=== PATIENT | female | born 1975 | race Caucasian/White ===

== ENCOUNTER 2018-04-23 03:56 | Emergency (ER) | payer OTHER ==
--- NOTE | 2018-04-23 04:19 | ED Physician Documentation ---
PD HPI CHEST PAIN - Stated complaint Stated Complaint: VOMITING,BACK AND CHEST PAIN - History obtained from History obtained from: Patient - History of Present Illness Timing - onset: Enter time (02:00) Timing - onset during: Sleep Timing - details: Abrupt onset Pain level max: 10 Pain level now: 10 Quality: Pain Location: Epigastric Radiation: Back Improved by: Nothing Worsened by: Other (no exacerbating factors) Associated symptoms: Nausea, Vomiting Similar symptoms before: Other (has had similar back pain before, and recently seen for recurrence of back spasms, prescribed flexeril. However, chest pain is new for patient) Recently seen: Clinic Review of Systems Constitutional: reports: Reviewed and negative Cardiac: reports: Chest pain / pressure. 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 - Present Medications Home Medications: Ambulatory Orders Medication Instructions Recorded Confirmed Ibuprofen [Motrin] 600 mg PO Q6H PRN #30 tab 07/20/13 diazePAM [Valium] 5 mg PO TID PRN #15 tablet 07/20/13 Ondansetron Odt [Zofran] 4 mg TL Q6H PRN #10 tablet 04/23/18 oxyCODONE/ACET 5/325 [Percocet 5 1 - 2 each PO Q6H PRN #14 tablet 04/23/18 mg/325 mg] - Allergies Allergies/Adverse Reactions: Allergies Allergy/AdvReac Type Severity Reaction Status Date / Time No Known Drug Allergies Allergy Verified 04/23/18 04:16 - Social History Does the pt smoke?: Yes Smoking Status: Current every day smoker Does the pt drink ETOH?: No Does the pt have substance abuse?: No - POLST Patient has POLST: No PD ED PE NORMAL - Vitals Vital signs reviewed: Yes - General General: Alert and oriented X 3, Well developed/nourished, Other (obvious painful distress) - HEENT HEENT: Moist mucous membranes - Cardiac Cardiac: RRR, No murmur - Respiratory Respiratory: No respiratory distress, Clear bilaterally - Abdomen Abdomen: Soft, Non distended, Other (mild/moderate tenderness RUQ and epigastrium) - Derm Derm: Normal color, Warm and dry, No rash - Extremities Extremities: No edema Results - Vitals Vitals: Vital Signs - 24 hr 04/23/18 04/23/18 04/23/18 04:05 04:41 04:42 Temperature 36.4 C L Heart Rate 73 80 Respiratory 13 18 Rate Blood Pressure 161/131 H 148/70 H Blood Pressure 148/70 H [Left] O2 Saturation 100 99 04/23/18 04/23/18 04/23/18 04:55 05:01 05:25 Temperature Heart Rate 81 Respiratory 10 L Rate Blood Pressure 145/78 H Blood Pressure [Left] O2 Saturation 87 L 98 99 04/23/18 04/23/18 04/23/18 06:19 06:58 07:26 Temperature 36.8 C Heart Rate 81 85 70 Respiratory 21 24 20 Rate Blood Pressure 134/65 H 107/62 111/61 Blood Pressure [Left] O2 Saturation 100 99 96 Oxygen O2 Source Room air Oxygen Flow Rate 2 - EKG (time done) No standard instances Rate: Rate (enter#) (72) Rhythm: NSR [place]: Normal Intervals: Normal ME QRS: Normal Ischemia: Normal ST segments - Labs Labs: Laboratory Tests 04/23/18 04/23/18 04/23/18 04:39 04:39 04:39 WBC 13.9 H RBC 4.95 Hgb 14.5 Hct 42.9 MCV 86.6 MCH 29.2 MCHC 33.7 RDW 13.0 Plt Count 292 MPV 8.9 Neut # (Auto) 10.7 H Lymph # (Auto) 2.3 [place] # (Auto) 0.6 Eos # (Auto) 0.3 Baso # (Auto) 0.1 Absolute Nucleated RBC 0.00 Nucleated RBC % 0.0 Sodium 136 Potassium 3.5 Chloride 105 Carbon Dioxide 21 Anion Gap 10.0 BUN 15 Creatinine 0.7 Estimated GFR (MDRD) 90 Glucose 208 H Calcium 9.3 Total Bilirubin 0.8 AST 27 ALT 27 Alkaline Phosphatase 79 Troponin I < 0.04 Total Protein 8.3 H Albumin 4.4 Globulin 3.9 Albumin/Globulin Ratio 1.1 Lipase 28 Urine Color Urine Clarity Urine pH Ur Specific [place] Urine Protein Urine Glucose (UA) Urine Ketones Urine Occult Blood Urine Nitrite Urine Bilirubin Urine Urobilinogen Ur Leukocyte Esterase Urine RBC Urine WBC Ur Squamous Epith Cells Urine Bacteria Ur Microscopic Review Urine Culture Comments Urine HCG, Qual 04/23/18 06:30 WBC RBC Hgb Hct MCV MCH MCHC RDW Plt Count MPV Neut # (Auto) Lymph # (Auto) [place] # (Auto) Eos # (Auto) Baso # (Auto) Absolute Nucleated RBC Nucleated RBC % Sodium Potassium Chloride Carbon Dioxide Anion Gap BUN Creatinine Estimated GFR (MDRD) Glucose Calcium Total Bilirubin AST ALT Alkaline Phosphatase Troponin I Total Protein Albumin Globulin Albumin/Globulin Ratio Lipase Urine Color YELLOW Urine Clarity CLEAR Urine pH 7.0 Ur Specific [place] 1.015 Urine Protein NEGATIVE Urine Glucose (UA) NEGATIVE Urine Ketones TRACE Urine Occult Blood SMALL H Urine Nitrite NEGATIVE Urine Bilirubin NEGATIVE Urine Urobilinogen 0.2 (NORMAL) Ur Leukocyte Esterase NEGATIVE Urine RBC 0-5 Urine WBC 0-3 Ur Squamous Epith Cells FEW Squamous Urine Bacteria Rare Ur Microscopic Review INDICATED Urine Culture Comments NOT INDICATED Urine HCG, Qual NEGATIVE - Rads (name of study) RUQ US Radiology: Prelim report reviewed, See rad report PD MEDICAL DECISION MAKING - ED course Complexity details: reviewed old records, reviewed results, re-evaluated patient , considered differential, d/w patient ED course: resolution of symptoms after dilaudid IV x 2 doses and zofran IV. AAOx3 on reevaluation after tests resulted, benign abd. exam. results discussed and advised to f/u with gen. surgery, return if worse - Sepsis Event Vital Signs: Vital Signs - 24 hr 04/23/18 04/23/18 04/23/18 04:05 04:41 04:42 Temperature 36.4 C L Heart Rate 73 80 Respiratory 13 18 Rate Blood Pressure 161/131 H 148/70 H Blood Pressure 148/70 H [Left] O2 Saturation 100 99 04/23/18 04/23/18 04/23/18 04:55 05:01 05:25 Temperature Heart Rate 81 Respiratory 10 L Rate Blood Pressure 145/78 H Blood Pressure [Left] O2 Saturation 87 L 98 99 04/23/18 04/23/18 04/23/18 06:19 06:58 07:26 Temperature 36.8 C Heart Rate 81 85 70 Respiratory 21 24 20 Rate Blood Pressure 134/65 H 107/62 111/61 Blood Pressure [Left] O2 Saturation 100 99 96 Oxygen O2 Source Room air Oxygen Flow Rate 2 Departure - Departure Disposition: 01 Home, Self Care Clinical Impression: Biliary colic Condition: Good Instructions: ED Gallstone W Biliary Colic Follow-Up: Erica Paz ARNP [Primary Care Provider] - Armand Albarran MD [Provider Admit Priv/Credential] - Prescriptions: Ondansetron Odt [Zofran] 4 mg TL Q6H PRN #10 tablet PRN Reason: Nausea / Vomiting oxyCODONE/ACET 5/325 [Percocet 5 mg/325 mg] 1 - 2 each PO Q6H PRN #14 tablet PRN Reason: Pain Discharge Date/Time: 04/23/18 07:33
[2018-04-23] MEDS ORDERED: KETOROLAC 60 MG/2 ML VIAL IVP STA (04:21)
[2018-04-23] MEDS ORDERED: HYDROmorphone 1 MG/ML CARPUJECT IVP STA ×2 (04:21→04:48)
[2018-04-23] MEDS ORDERED: SODIUM CHLORIDE 0.9% 1,000 ML IV STA (04:21)
[2018-04-23] MEDS ORDERED: ONDANSETRON 4 MG/2 ML VIAL IVP STA (04:29)
[2018-04-23 04:48] LABS: BASOPHILS # (AUTO) 0.1 10^3/uL (0.0-0.1); BASOPHILS % (AUTO) 0.8 %; EOSINOPHILS # (AUTO) 0.3 10^3/uL (0.0-0.7); HGB - HEMOGLOBIN 14.5 g/dL (12.0-16.0); LYMPHOCYTES # (AUTO) 2.3 10^3/uL (1.5-3.5); LYMPHOCYTES % (AUTO) 16.3 %; MEAN CORPUSCULAR HEMOGLOBIN 29.2 pg (27.0-31.0); MEAN CORPUSCULAR HGB CONC 33.7 g/dL (32.0-36.0); MEAN CORPUSCULAR VOLUME 86.6 fL (81.0-99.0); MEAN PLATELET VOLUME 8.9 fL (7.9-10.8); MONOCYTES # (AUTO) 0.6 10^3/uL (0.0-1.0); NEUTROPHILS # (AUTO) 10.7 10^3/uL (1.5-6.6); NEUTROPHILS % (AUTO) 76.9 %; PLT - PLATELET COUNT 292 10^3/uL (130-450); RED BLOOD COUNT 4.95 10^6/uL (4.20-5.40); WHITE BLOOD COUNT 13.9 x10^3/uL (4.8-10.8)
[2018-04-23 04:56] LABS: ALBUMIN 4.4 g/dL (3.2-5.5); ALBUMIN/GLOBULIN RATIO 1.1 (1.0-2.2); BILIRUBIN,TOTAL 0.8 mg/dL (0.2-1.0); CALCIUM 9.3 mg/dL (8.5-10.3); CREATININE 0.7 mg/dL (0.4-1.0); TOTAL PROTEIN 8.3 g/dL (6.7-8.2)
--- NOTE | 2018-04-23 05:54 | Ultrasound Report ---
Procedure Date: 04/23/2018 Accession Number: [id number] / [id number] Procedure: US - Abdomen Limited CPT Code: FULL RESULT: EXAM: ABDOMEN ULTRASOUND LIMITED, RUQ EXAM DATE: 04/23/2018 05:23 AM. CLINICAL HISTORY: Right upper quadrant pain. COMPARISON: None. TECHNIQUE: Real-time scanning was performed with static images obtained. FINDINGS: Liver: Enlarged and echogenic. 22 cm. Main portal vein flow: Hepatopetal. Gallbladder: Multiple mobile stones in the gallbladder. Wall thickness is normal at 2.1 mm. No focal tenderness over the gallbladder. Biliary System: CBD measures 9 mm. Possible 2 mm stone in the distal common duct. Other: Right kidney measures 11.1 cm and appears normal. Visualized portions of the pancreas are unremarkable. IMPRESSION: 1. Multiple mobile stones in the gallbladder. No cholecystitis identified. 2. Dilated common duct measuring up to 9 mm. Possible 2 mm stone in the distal common duct. 3. Enlarged fatty liver. RADIA
[2018-04-23 06:36] LABS: BILIRUBIN,URINE NEGATIVE (NEGATIVE); GLUCOSE, URINE (UA) NEGATIVE (NEGATIVE); KETONES,URINE (UA) TRACE mg/dL (NEGATIVE); LEUKOCYTE ESTERASE, URINE NEGATIVE (NEGATIVE); NITRITE,URINE NEGATIVE (NEGATIVE); OCCULT BLOOD,URINE SMALL (NEGATIVE); PROTEIN,URINE NEGATIVE (NEGATIVE); UROBILINOGEN,URINE 0.2 (NORMAL) E.U./dL (NORMAL)
[2018-04-23 06:37] LABS: CLARITY,URINE CLEAR (CLEAR); HCG UR QUAL NEGATIVE
[2018-04-23 06:41] LABS: RBC,URINE 0-5 /HPF (0-5)
[2018-04-23 06:42] LABS: BACTERIA,URINE Rare /HPF (None Seen); SQUAMOUS EPITHELIAL CELL,UR FEW Squamous (<= Few)
[2018-04-23 07:28] VITALS: BP 111/61
== END 2018-04-23 07:33 | disposition home or self-care (01) ==
LOC: ED 03:56
DX: K80.20 Calculus of gallbladder without cholecystitis without obstruction (principal); K76.0 Fatty (change of) liver, not elsewhere classified; F17.200 Nicotine dependence, unspecified, uncomplicated
CPT/HCPCS: 76705; 80053; 81001; 81025; 83690; 84484; 85025; 93005; 96361; 96374; 96375; 99283; 99284; J1170; 81003; 87086

== ENCOUNTER 2018-05-06 06:49 | Observation (INO) | payer OTHER ==
[~2018-05-06 06:49] MED LIST: LACTATED RINGERS 1,000 ML IV ONE
[2018-05-06 07:19] LABS: HCG UR QUAL NEGATIVE
[2018-05-06] MEDS ORDERED: BUPIVACAINE 0.5%-EPI 1:200000 PF 30 ML VIAL ONE ×3 (07:21→20:58)
[2018-05-06 08:06] LABS: ALBUMIN 3.8 g/dL (3.2-5.5); BILIRUBIN,TOTAL 0.8 mg/dL (0.2-1.0); TOTAL PROTEIN 7.2 g/dL (6.7-8.2)
[2018-05-06] MEDS ORDERED: BUPIVACAINE 0.5%-EPI 1:200000 PF 30 ML VIAL SUBQ ONE ×4 (08:55→21:28)
[2018-05-06] MEDS ORDERED: PROPOFOL 200 MG/20 ML VIAL IVP ONE ×2 (09:00→22:00)
[2018-05-06] MEDS ORDERED: ACETAMINOPHEN 1,000 MG/100 ML 100 ML IV ONE (09:00)
[2018-05-06] MEDS ORDERED: PHENYLEPHRINE 50 MG/5 ML VIAL IV ONE (09:00)
[2018-05-06] MEDS ORDERED: fentaNYL 100 MCG/2 ML VIAL IVP ONE ×2 (09:00→22:00)
[2018-05-06] MEDS ORDERED: GLYCOPYRROLATE 1 MG/5 ML VIAL IVP ONE ×2 (09:00→22:00)
[2018-05-06] MEDS ORDERED: LIDOCAINE-MPF 2% 5 ML VIAL IM ONE (09:00)
[2018-05-06] MEDS ORDERED: NEOSTIGMINE 1 MG/1 ML 10 ML MDV IVP ONE ×2 (09:00→22:00)
[2018-05-06] MEDS ORDERED: DEXAMETHASONE 4 MG/ML VIAL IVP ONE (09:00)
[2018-05-06] MEDS ORDERED: ceFAZolin 1 GM VIAL IV ONE ×2 (09:00→22:00)
[2018-05-06] MEDS ORDERED: ROCURONIUM 50 MG/5 ML VIAL IVP ONE ×2 (09:00→22:00)
[2018-05-06] MEDS ORDERED: MIDAZOLAM 2 MG/2 ML VIAL IVP ONE (09:00)
[2018-05-06] MEDS ORDERED: LACTATED RINGERS 1,000 ML IV ONE ×6 (09:13→22:30)
[2018-05-06] MEDS ORDERED: fentaNYL 100 MCG/2 ML VIAL ONE (13:09)
[2018-05-06] MEDS: HYDROmorphone 0.5 MG/0.5 ML SYRINGE ONE ×2 (13:30→23:11)
--- NOTE | 2018-05-06 13:51 | OPERATIVE REPORT ---
Operative Report - General Procedure Date: 05/06/18 Planned Procedure: Laparoscopic cholecystectomy Pre-Op Diagnosis: biliary colic Procedure Performed: laparoscopic cholecystectomy Post Op Diagnosis: chronic cholecystitis - Procedure Note Primary Surgeon: Sandip Secondary Surgeon: Brianda Anesthesia Provider: Beny Estimated Blood Loss (mL): 50 Drain/Tube Type: Levi drain - Other Other Information/Narrative: Findings: After obtaining informed consent the patient was brought into the operating room and positioned on the operating table in the supine position taking noted pressure points. The patient was intubated by anesthesia. Perioperative antibiotics were administered. A foot board was placed and the patients feet secured to the board due to the patient's body habitus. The patient was then prepped and draped in the usual sterile fashion and a timeout was taken according to protocol. An infraumbilical 1 cm incision was created and deepened down to the umbilical stalk. The stalk was grasped and elevated and the veres needle inserted. The abdominal cavity was insufflated. A 5 mm incision was created in the patient's epigastric region to the right of the midline. Using a 5 mm Optiview trocar the abdominal cavity was entered. The Veress needle was removed and exchanged for a 12 mm port. 2 additional 5 mm ports were then placed along the patient's right lateral abdominal wall. The gallbladder was noted to be very thickened and unable to be grasped. It was then drained with a large needle and clear fluid was evacuated. The tip of the gallbladder was then grasped and retracted over the dome of the liver. The gallbladder was noted to be adherent to the underlying omentum and duodenum. These structures were carefully dissected off the gallbladder with blunt dissection. The gallbladder was intrahepatic and the enlarged fatty liver created difficulty with visualization of the base of the gallbladder. A thickened peel was opened on the anterior surface of the gallbladder and extended in each direction towards the liver. An enlarged lymph node was carefully dissected off the gallbladder mucosa. The inflammation created significant amount of oozing during this process. Continue dissecting the inflamed tissue off of the surface of the gallbladder trying to expose the cystic duct and artery. Eventually I was able to dissect out the cystic artery with much difficulty. It was difficult to obtain a significant amount of space proximally and distally on the cystic artery. I did place 2 clamps and divided the artery. After division, the proximally placed clip became dislodged and bleeding occurred from the cystic artery. This was clamped with the [place] and the bleeding temporarily controlled . I then called and Dr. Lamar for assistance. Upon his arrival a fifth 5 mm port was inserted. I was then able to clip the cystic artery proximal to its transection and obtaining hemostasis. I continue to carefully dissect out at the base of the gallbladder finally eventually exposing the cystic duct. During this process the base of the gallbladder mucosa was eroded through by a very large gallstone. Several large gallstones were dislodged into the abdominal cavity during this process. I was able to circumferentially dissect out the cystic duct. The epigastric 5 mm port was upgraded to 12 millimeter port, and using the 10 mm clipping device the cystic duct was clipped and divided. I then began peeling the gallbladder off of the liver bed. This remains difficult due to the intrahepatic nature of the gallbladder and the very thickened capsule around the gallbladder. There was some bleeding into the liver during this process. Eventually the gallbladder was completely removed from the gallbladder fossa. The gallbladder was placed into the specimen bag and each of the spilled stones were carefully removed from the abdominal cavity and placed into the specimen bag. Surgicel was placed in the gallbladder fossa for hemostasis. The umbilical port site incision was extended appropriately to remove the very enlarged gallbladder with stones. The abdominal cavity was then reexamined. There was continual bleeding from the gallbladder fossa which was controlled with combination of electrocautery and a second Surgicel. The gallbladder fossa was copiously irrigated and all visible stones were removed. Hemostasis was noted to be achieved. A 19 Yi Levi drain was then inserted from the lateral port into the gallbladder fossa. The abdominal cavity was allowed to desufflate. The umbilical incision was closed with a running 0 Vicryl suture. The umbilical skin was closed with a 3-0 nylon. The drain was sutured in place with a 3-0 nylon. The remaining incisions were closed with 4-0 Monocryl. Dressings were applied and the patient was extubated taken to recovery in stable condition. Estimated blood loss: 50 cc Fluids received: 1900 cc crystalloid Complications: None Specimen: Gallbladder
[2018-05-06] MEDS ORDERED: oxyCOD/ACETAMIN 5 MG/325 MG TABLET PO PRN (14:09)
[2018-05-06] MEDS ORDERED: SODIUM CHLORIDE FLUSH 0.9% 10 ML SYRINGE IVP PRN (14:09)
[2018-05-06] MEDS ORDERED: oxyCODONE 5 MG TABLET PO PRN (14:28)
[2018-05-06] MEDS: oxyCODONE 5 MG TABLET PO PRN ×2 (14:42→18:44)
[2018-05-06] MEDS: MORPHINE 2 MG/ML SYRINGE IVP PRN ×2 (16:42→18:45)
[2018-05-06] MEDS ORDERED: ONDANSETRON 4 MG/2 ML VIAL IVP PRN (18:37)
[2018-05-06 18:41] LABS: BASOPHILS % (AUTO) 0.3 %; HGB - HEMOGLOBIN 11.8 g/dL (12.0-16.0); LYMPHOCYTES % (AUTO) 4.2 %; MEAN CORPUSCULAR HGB CONC 33.2 g/dL (32.0-36.0); MEAN CORPUSCULAR VOLUME 87.3 fL (81.0-99.0); MEAN PLATELET VOLUME 8.4 fL (7.9-10.8); MONOCYTES % (AUTO) 4.8 %; NEUTROPHILS % (AUTO) 90.7 %; PLT - PLATELET COUNT 463 10^3/uL (130-450); RED BLOOD COUNT 4.08 10^6/uL (4.20-5.40); WHITE BLOOD COUNT 26.3 x10^3/uL (4.8-10.8)
[2018-05-06] MEDS: AMPICILLIN/SULBACTAM 3 GM in SODIUM CHLORIDE 0.9% MINIBAG 100 ML IV SCH (18:44)
[2018-05-06 18:47] LABS: ABNORMAL LYMPHS % (MANUAL) 0 %
[2018-05-06] MEDS: ALBUTEROL NEB 2.5 MG/3 ML INH PRN (19:13)
[2018-05-06 19:18] LABS: BAND NEUTROPHILS % (MANUAL) 8 %; EOSINOPHILS # (MANUAL) 0.3 10^3/uL (0-0.7); LYMPHOCYTES # (MANUAL) 1.6 10^3/uL (1.5-3.5); LYMPHOCYTES % (MANUAL) 6 %; MONOCYTES # (MANUAL) 0.3 10^3/uL (0.0-1.0); NEUTROPHILS # (MANUAL) 24.2 10^3/uL (1.5-6.6); NEUTROPHILS % (MANUAL) 84 %
[2018-05-06 19:19] LABS: PLATELET ESTIMATE, MANUAL INCREASED (>450,000) (NORMAL); PLATELET MORPHOLOGY NORMAL APPEARANCE (NORMAL); RBC MORPHOLOGY (MULTIPLE) NORMAL APPEARANCE (NORMAL)
[2018-05-06] MEDS: LACTATED RINGERS 1,000 ML IV SCH (19:43)
[2018-05-06] MEDS ORDERED: TRANEXAMIC ACID 1,000 MG in SODIUM CHLORIDE 0.9% 100ML 100 ML IV ONE (20:37)
[2018-05-06] MEDS ORDERED: HYDROmorphone 1 MG/ML SYRINGE IVP ONE (22:00)
[2018-05-06] MEDS ORDERED: TRANEXAMIC ACID 1,000 MG/10 ML VIAL IV ONE (22:00)
[2018-05-06] MEDS ORDERED: ONDANSETRON 4 MG/2 ML VIAL IVP ONE (22:00)
[2018-05-06] MEDS ORDERED: SUCCINYLCHOLINE 200 MG/10 ML VIAL IVP ONE (22:00)
[2018-05-06] MEDS ORDERED: HYDROmorphone 0.5 MG/0.5 ML SYRINGE ONE (23:09)
[2018-05-07] MEDS: MORPHINE 2 MG/ML SYRINGE IVP PRN ×5 (02:08→22:03)
[2018-05-07] MEDS ORDERED: TRANEXAMIC ACID 1,000 MG in SODIUM CHLORIDE 0.9% 100ML 100 ML IV ONE (03:00)
[2018-05-07 05:31] LABS: BASOPHILS % (AUTO) 0.1 %; EOSINOPHILS % (AUTO) 0.1 %; LYMPHOCYTES # (AUTO) 1.7 10^3/uL (1.5-3.5); LYMPHOCYTES % (AUTO) 10.3 %; MEAN CORPUSCULAR HEMOGLOBIN 29.4 pg (27.0-31.0); MEAN CORPUSCULAR VOLUME 86.5 fL (81.0-99.0); MEAN PLATELET VOLUME 8.3 fL (7.9-10.8); MONOCYTES # (AUTO) 1.3 10^3/uL (0.0-1.0); MONOCYTES % (AUTO) 7.7 %; NEUTROPHILS # (AUTO) 13.3 10^3/uL (1.5-6.6); NEUTROPHILS % (AUTO) 81.8 %; PLT - PLATELET COUNT 393 10^3/uL (130-450); RED BLOOD COUNT 3.07 10^6/uL (4.20-5.40); RED CELL DISTRIBUTION WIDTH 13.1 % (12.0-15.0); WHITE BLOOD COUNT 16.3 x10^3/uL (4.8-10.8)
[2018-05-07] MEDS: AMPICILLIN/SULBACTAM 3 GM in SODIUM CHLORIDE 0.9% MINIBAG 100 ML IV SCH ×5 (05:59→17:41)
[2018-05-07] MEDS: LACTATED RINGERS 1,000 ML IV SCH ×3 (06:06→23:36)
[2018-05-07] MEDS: oxyCODONE 5 MG TABLET PO PRN ×3 (06:23→17:42)
[2018-05-07] MEDS: ALBUTEROL NEB 2.5 MG/3 ML INH PRN ×2 (08:01→14:11)
--- NOTE | 2018-05-07 09:38 | OPERATIVE REPORT ---
Operative Report - General Procedure Date: 05/06/18 Planned Procedure: Exploratory laparoscopy, possible laparotomy, evacuation of hematoma Pre-Op Diagnosis: post operative bleeding Procedure Performed: Exploratory laparoscopy, evacuation of hematoma, hemostasis of gallbladder fossa - Procedure Note Primary Surgeon: Sandip Estimated Blood Loss (mL): 300 Drain/Tube Type: Levi drain - Other Other Information/Narrative: Findings: After obtaining informed consent the patient was brought to the operating room and positioned supine. She was intubated and administered pre- operative antibiotics. She was prepped and draped and a time out performed. 1 gm of tranexemic acid was administered. The umbilical incision was opened and the ambrocio port inserted. The 10 mm scope inserted and blood products were observed in the right paracolic gutters. The epigastric port site was opened and a 12 mm port inserted. an additional 5 mm port site was opened and a 5 mm port inserted. The levi drain was removed and a 5 mm port placed here. The blood products were suctioned. The liver elevated and the surgicel with clot was broken up and suctioned out. 190 cc of blood was evauted prior to irrigating. The liver was elevated and the gallbladder fossa observed. The clips placed on the cystic artery was in place with no evidence of pulsatile bleeding There was punctate oozing noted from the raw surface of the gallbladder fossa which was controlled with electrocautery. The liver bed was copiously irrigated with liters of saline until all clots were removed. The liver bed was observed for several minutes to ensure hemostasis. Surgiflo was administered to the liver bed where the bleeding had occurred. A new levi drain was inserted through the lateral port and positioned in the gallbladder fossa. The abdomen was then allowed to desufflate and the umbilical incision closed with a running 0 Vicryl suture. 20 cc of lidocaine was administered. The remaining incisions were closed with 3-0 nylon. The levi drain was secured with 3-0 nylon. The patient was extubated and taken to recovery in stable condition.
--- NOTE | 2018-05-07 09:40 | PROVIDER PROGRESS NOTE ---
Subjective - General Procedure Date: 05/06/18 Post Op Days: 1 - Review of Systems Wound/Incisions: positive: Other (dressings dry and intact) Drain Type: miriam Drain Output Description: 25 cc serosanguinous General: positive: Weakness, Fatigue Cardiovascular: negative: Palpitations Gastrointestinal: positive: Abdominal pain, Other (incisional pain) Genitourinary: positive: No symptoms Musculoskeletal: positive: Shoulder pain Psychiatric: positive: No symptoms Objective - Patient Data Reviewed Vital Signs: Yes Vital Signs: Vital Signs x48h Pulse Resp 05/07/18 08:02 113 H 20 Weight: Weight 05/05/18 05/06/18 05/07/18 23:59 23:59 23:59 Weight (kg) 116.3 kg Intake & Output: Intake and Output Totals x24h 05/05/18 05/06/18 05/07/18 23:59 23:59 23:59 Intake Total 2400 1210 Output Total 975 Balance 1425 1210 - Lab Results Lab Results: 05/07/18 05:05 Other Lab Results: Lab Results x24hrs 05/07/18 05/06/18 05/06/18 Range/Units 05:05 20:18 18:31 WBC 16.3 H (4.8-10.8) x10^3/uL RBC 3.07 L (4.20-5.40) 10^6/uL Hgb 9.0 L (12.0-16.0) g/dL Hct 26.5 L (37.0-47.0) % MCV 86.5 (81.0-99.0) fL MCH 29.4 (27.0-31.0) pg MCHC 34.0 (32.0-36.0) g/dL RDW 13.1 (12.0-15.0) % Plt Count 393 (130-450) 10^3/uL MPV 8.3 (7.9-10.8) fL Neut # (Auto) 13.3 H Lymph # (Auto) 1.7 [place] # (Auto) 1.3 H Eos # (Auto) 0.0 Baso # (Auto) 0.0 Absolute Nucleated RBC 0.00 Total Counted Band Neuts % (Manual) (0 - 10) % Abnorm Lymph % (Manual) % Nucleated RBC % 0.0 Neutrophils # (Manual) (1.5-6.6) 10^3/uL Lymphocytes # (Manual) (1.5-3.5) 10^3/uL Monocytes # (Manual) (0.0-1.0) 10^3/uL Eosinophils # (Manual) (0-0.7) 10^3/uL Basophils # (Manual) (0-0.1) 10^3/uL Platelet Estimate (NORMAL) Platelet Morphology (NORMAL) RBC Morph Micro Appear (NORMAL) Blood Type O POSITIVE Blood Type Recheck O POSITIVE Antibody Screen NEGATIVE Crossmatch IS Only See Detail 05/06/18 Range/Units 18:31 WBC 26.3 H (4.8-10.8) x10^3/uL RBC 4.08 L (4.20-5.40) 10^6/uL Hgb 11.8 L (12.0-16.0) g/dL Hct 35.6 L (37.0-47.0) % MCV 87.3 (81.0-99.0) fL MCH 29.0 (27.0-31.0) pg MCHC 33.2 (32.0-36.0) g/dL RDW 13.0 (12.0-15.0) % Plt Count 463 H (130-450) 10^3/uL MPV 8.4 (7.9-10.8) fL Neut # (Auto) Not Reportable Lymph # (Auto) Not Reportable [place] # (Auto) Not Reportable Eos # (Auto) Not Reportable Baso # (Auto) Not Reportable Absolute Nucleated RBC Not Reportable Total Counted 100 Band Neuts % (Manual) 8 (0 - 10) % Abnorm Lymph % (Manual) 0 % Nucleated RBC % Not Reportable Neutrophils # (Manual) 24.2 H (1.5-6.6) 10^3/uL Lymphocytes # (Manual) 1.6 (1.5-3.5) 10^3/uL Monocytes # (Manual) 0.3 (0.0-1.0) 10^3/uL Eosinophils # (Manual) 0.3 (0-0.7) 10^3/uL Basophils # (Manual) 0.0 (0-0.1) 10^3/uL Platelet Estimate INCREASED (>450,000) (NORMAL) Platelet Morphology NORMAL APPEARANCE (NORMAL) RBC Morph Micro Appear NORMAL APPEARANCE (NORMAL) Blood Type Blood Type Recheck Antibody Screen Crossmatch IS Only - Current Medications Current Medications: Current Medications Generic Name Dose Route Start Last Admin Trade Name Freq PRN Reason Stop Dose Admin Albuterol 2.5 mg 05/06/18 18:38 05/07/18 08:01 INH 05/10/18 18:37 2.5 mg RTQ4H PRN Administration Wheezing Ampicillin Sodium/Sulbactam 100 mls @ 200 mls/hr 05/06/18 18:00 05/07/18 05: 59 Sodium 3 gm/ Sodium Chloride IV 200 mls/hr Q6HR BEBETO Administration Lactated Ringer's 1,000 mls @ 125 mls/hr 05/06/18 19:00 05/07/18 06:06 Lr IV 05/09/18 18:59 125 mls/hr .Q8H BEBETO Administration Morphine Sulfate 4 mg 05/06/18 16:15 05/07/18 08:42 Morphine IVP 4 mg Q2H PRN Administration PAIN Oxycodone HCl 5 mg 05/06/18 14:33 05/07/18 06:23 Roxicodone PO 5 mg Q4HR PRN Administration PAIN Sodium Chloride 10 ml 05/06/18 14:09 05/06/18 23:59 Normal Saline Flush 0.9% IVP 10 ml PRN PRN Administration PER PHYSICIAN ORDER - Physical Exam Wound/Incisions: positive: Dressing dry and intact, No drainage General Appearance: positive: Other (laying in bed flat. Flat affect.) Respiratory: positive: No respiratory distress Cardiovascular: positive: Regular rate & rhythm Abdomen: positive: Other (soft, non-distended.) Extremities: positive: Other (capillary refill < 2 sec) Neurologic/Psychiatric: positive: Oriented x3 Impression/Plan - Problem List Problem List: s/p laparoscopic cholecystectomy and return to OR for laparoscopic evacuation of hematoma and hemostasis of liver bed POD 1 The patients bleeding from the gallbladder fossa was likely related to her fatty liver disease and possible underlying cirrhosis. In the setting of morbid obesity and a history of alcohol and drug abuse she has underlying liver disease which contributed to the post operative bleeding. She responded well to administration of tranexamic acid. Her HH has declined but this is appropriate for the amount of blood loss which occurred. Her draining overnight has been minimal. She does not require blood transfusion at this time. I have encouraged the patient to ambulate and use her IS to prevent DVT and pneumonia. I explained that due to her body habitus she is at high risk for both. Will removed espinal once ambulating Continue antibiotics due to high risk of post operative infection Regular diet as tolerated Plan for DC home tomorrow if drain output remains stable, patient tolerating diet and ambulating without assistance.
[2018-05-07] MEDS ORDERED: ONDANSETRON 4 MG/2 ML VIAL IVP PRN (12:21)
[2018-05-07] MEDS: ACETAMINOPHEN 1,000 MG/100 ML 100 ML IV SCH ×2 (14:14→20:54)
[2018-05-07] MEDS: SODIUM CHLORIDE FLUSH 0.9% 10 ML SYRINGE IVP PRN ×2 (19:37→22:03)
[2018-05-08] MEDS: AMPICILLIN/SULBACTAM 3 GM in SODIUM CHLORIDE 0.9% MINIBAG 100 ML IV SCH ×5 (00:11→23:44)
[2018-05-08] MEDS: oxyCODONE 5 MG TABLET PO PRN ×4 (00:13→23:42)
[2018-05-08] MEDS: SODIUM CHLORIDE FLUSH 0.9% 10 ML SYRINGE IVP PRN ×2 (00:20→02:21)
[2018-05-08] MEDS: MORPHINE 2 MG/ML SYRINGE IVP PRN ×4 (02:16→14:49)
[2018-05-08] MEDS: ACETAMINOPHEN 1,000 MG/100 ML 100 ML IV SCH ×4 (02:17→21:57)
[2018-05-08] MEDS: ALBUTEROL NEB 2.5 MG/3 ML INH PRN ×4 (02:38→19:41)
[2018-05-08] MEDS: LACTATED RINGERS 1,000 ML IV SCH ×3 (05:13→13:42)
[2018-05-08 08:07] LABS: BASOPHILS # (AUTO) 0.1 10^3/uL (0.0-0.1); BASOPHILS % (AUTO) 0.6 %; EOSINOPHILS # (AUTO) 0.3 10^3/uL (0.0-0.7); EOSINOPHILS % (AUTO) 2.6 %; HGB - HEMOGLOBIN 8.3 g/dL (12.0-16.0); LYMPHOCYTES # (AUTO) 2.7 10^3/uL (1.5-3.5); LYMPHOCYTES % (AUTO) 20.3 %; MEAN CORPUSCULAR HEMOGLOBIN 29.3 pg (27.0-31.0); MEAN CORPUSCULAR HGB CONC 33.6 g/dL (32.0-36.0); MEAN CORPUSCULAR VOLUME 87.3 fL (81.0-99.0); MEAN PLATELET VOLUME 8.2 fL (7.9-10.8); MONOCYTES # (AUTO) 1.1 10^3/uL (0.0-1.0); MONOCYTES % (AUTO) 7.9 %; NEUTROPHILS # (AUTO) 9.1 10^3/uL (1.5-6.6); NEUTROPHILS % (AUTO) 68.6 %; PLT - PLATELET COUNT 324 10^3/uL (130-450); RED BLOOD COUNT 2.84 10^6/uL (4.20-5.40); RED CELL DISTRIBUTION WIDTH 13.1 % (12.0-15.0); WHITE BLOOD COUNT 13.2 x10^3/uL (4.8-10.8)
[2018-05-08] MEDS ORDERED: TRANEXAMIC ACID 1,000 MG in SODIUM CHLORIDE 0.9% 100ML 100 ML IV ONE (10:10)
--- NOTE | 2018-05-08 11:44 | POST OP PROGRESS NOTE ---
Subjective - General Admit Date: 05/07/18 Procedure Date: 05/06/18 Post Op Days: 2 - Review of Systems Wound/Incisions: positive: Dressing dry and intact, No drainage Drain Type: miriam Drain Output Description: sanguinous Approximate mls Output: 260 General: positive: Weakness, Fatigue Cardiovascular: negative: Chest pain, Palpitations Gastrointestinal: positive: Abdominal pain, Other (incisional pain) Genitourinary: positive: No symptoms Psychiatric: positive: No symptoms - Other Other Information/Narrative: Patient feels a bit better today. She continues to have bloody drainage from the drain. Her HH is trending down slowly, appropriate for the amount of blood loss she had. She is tolerating a regular diet. She has not had a bowel movement in several days. Surgery Impression Plan - Problem List (1) S/P cholecystectomy Impression/Plan: Persistent bloody drainage is concerning for some ongoing oozing from the liver bed. I will administer another dose of TXA. I am not concerned for arterial bleeding as this was not the case upon return to the operating room and only a small amount of oozing from the liver was noted. She has underlying liver disease which is contributing to her inability to clot. Will continue to monitor RONEL drainage. Encourage ambulation. Continue antibiotics for high risk of post operative infection. Encourage IS. Plan for discharge once drainage is stable.
[2018-05-08 13:22] LABS: INR 1.2 (0.8-1.2); PT - PROTHROMBIN TIME 13.1 secs (9.9-12.6)
[2018-05-09] MEDS ORDERED: SODIUM CHLORIDE 0.9% 500 ML IV PRN
[2018-05-09] MEDS: ACETAMINOPHEN 1,000 MG/100 ML 100 ML IV SCH ×4 (02:25→20:34)
[2018-05-09] MEDS: oxyCODONE 5 MG TABLET PO PRN ×4 (04:35→20:34)
[2018-05-09] MEDS: ALBUTEROL NEB 2.5 MG/3 ML INH PRN ×2 (04:57→16:37)
[2018-05-09] MEDS: AMPICILLIN/SULBACTAM 3 GM in SODIUM CHLORIDE 0.9% MINIBAG 100 ML IV SCH ×4 (05:31→23:58)
[2018-05-09 05:50] LABS: BASOPHILS # (AUTO) 0.1 10^3/uL (0.0-0.1); BASOPHILS % (AUTO) 0.7 %; EOSINOPHILS # (AUTO) 0.4 10^3/uL (0.0-0.7); EOSINOPHILS % (AUTO) 4.2 %; HGB - HEMOGLOBIN 7.9 g/dL (12.0-16.0); LYMPHOCYTES # (AUTO) 2.5 10^3/uL (1.5-3.5); LYMPHOCYTES % (AUTO) 25.6 %; MEAN CORPUSCULAR HEMOGLOBIN 30.2 pg (27.0-31.0); MEAN CORPUSCULAR HGB CONC 34.3 g/dL (32.0-36.0); MEAN CORPUSCULAR VOLUME 88.2 fL (81.0-99.0); MEAN PLATELET VOLUME 8.1 fL (7.9-10.8); MONOCYTES # (AUTO) 0.6 10^3/uL (0.0-1.0); NEUTROPHILS # (AUTO) 6.3 10^3/uL (1.5-6.6); NEUTROPHILS % (AUTO) 63.5 %; PLT - PLATELET COUNT 300 10^3/uL (130-450); RED BLOOD COUNT 2.62 10^6/uL (4.20-5.40); RED CELL DISTRIBUTION WIDTH 12.9 % (12.0-15.0); WHITE BLOOD COUNT 9.9 x10^3/uL (4.8-10.8)
[2018-05-09 06:06] LABS: BILIRUBIN,DIRECT 0.1 mg/dL (0.1-0.5); BILIRUBIN,TOTAL 0.6 mg/dL (0.2-1.0); TOTAL PROTEIN 6.2 g/dL (6.7-8.2)
[2018-05-09] MEDS: POLYETHYLENE GLYCOL 3350 17 GM PACKET PO SCH (08:40)
[2018-05-09] MEDS: SENNA 8.6 MG TABLET PO SCH (08:41)
[2018-05-09] MEDS: DOCUSATE SODIUM 250 MG CAPSULE PO SCH (08:41)
[2018-05-09] MEDS ORDERED: SENNA 8.6 MG TABLET PO SCH (09:00)
[2018-05-09] MEDS ORDERED: DOCUSATE SODIUM 250 MG CAPSULE PO SCH (09:00)
--- NOTE | 2018-05-09 13:59 | PROVIDER PROGRESS NOTE ---
Subjective - General Admit Date: 05/07/18 Procedure Date: 05/06/18 Post Op Days: 3 Procedure Performed: lap xander and laparoscopic evacuation of hematoma - Review of Systems Wound/Incisions: positive: Other (umbilical dressing saturated) Drain Type: miriam Drain Output Description: sanguinous Approximate mls Output: 40 General: positive: Weakness, Fatigue Cardiovascular: negative: Chest pain, Palpitations Gastrointestinal: positive: Abdominal pain, Other (incisional pain) Genitourinary: positive: No symptoms Psychiatric: positive: No symptoms - Other Other Information/Narrative: Patient is continuing to feel better although she does still have significant incisional pain. Her RONEL drain has decreased significantly and the total for today has been 40 cc of sanguinous fluid. She did receive 2 units of FFP yesterday for an abnormal INR. Her H&H is continuing to trend down however she can she does not meet transfusion criteria. Objective - Patient Data Reviewed Vital Signs: Yes Vital Signs: Vital Signs x48h Temp Pulse Resp BP Pulse Ox 05/09/18 08:47 37.0 C 105 H 18 120/78 93 Intake & Output: Intake and Output Totals x24h 05/07/18 05/08/18 05/09/18 23:59 23:59 23:59 Intake Total 5592.000 3231 1920.000 Output Total 2810 4365 1220 Balance 2782.000 -1134 700.000 - Lab Results Lab Results: 05/09/18 05:46 Other Lab Results: Lab Results x24hrs 05/09/18 05/09/18 05/08/18 Range/Units 05:46 05:46 Unknown WBC 9.9 (4.8-10.8) x10^3/uL RBC 2.62 L (4.20-5.40) 10^6/uL Hgb 7.9 L (12.0-16.0) g/dL Hct 23.1 L (37.0-47.0) % MCV 88.2 (81.0-99.0) fL MCH 30.2 (27.0-31.0) pg MCHC 34.3 (32.0-36.0) g/dL RDW 12.9 (12.0-15.0) % Plt Count 300 (130-450) 10^3/uL MPV 8.1 (7.9-10.8) fL Neut # (Auto) 6.3 (1.5-6.6) 10^3/uL Lymph # (Auto) 2.5 (1.5-3.5) 10^3/uL [place] # (Auto) 0.6 (0.0-1.0) 10^3/uL Eos # (Auto) 0.4 (0.0-0.7) 10^3/uL Baso # (Auto) 0.1 (0.0-0.1) 10^3/uL Absolute Nucleated RBC 0.00 x10^3/uL Nucleated RBC % 0.0 /100WBC Total Bilirubin 0.6 (0.2-1.0) mg/dL Direct Bilirubin 0.1 (0.1-0.5) mg/dL AST 53 H (10-42) IU/L ALT 77 H (10-60) IU/L Alkaline Phosphatase 56 (42-121) IU/L Total Protein 6.2 L (6.7-8.2) g/dL Albumin 3.0 L (3.2-5.5) g/dL Globulin 3.2 (2.1-4.2) g/dL Blood Type O POSITIVE - Current Medications Current Medications: Current Medications Generic Name Dose Route Start Last Admin Trade Name Freq PRN Reason Stop Dose Admin Albuterol 2.5 mg 05/07/18 12:23 05/09/18 04:57 INH 2.5 mg RTQ4H PRN Administration Wheezing Docusate Sodium 250 - 500 mg 05/09/18 09:00 05/09/18 08:41 Colace 250mg Capsule PO 250 mg DAILY BEBETO Administration Ampicillin Sodium/Sulbactam 100 mls @ 200 mls/hr 05/07/18 12:00 05/09/18 13: 20 Sodium 3 gm/ Sodium Chloride IV Infused Q6HR BEBETO Infusion Acetaminophen 100 mls @ 400 mls/hr 05/07/18 14:00 05/09/18 09:08 Ofirmev IV Infused Q6H BEBETO Infusion Morphine Sulfate 4 mg 05/07/18 12:12 05/08/18 14:49 Morphine IVP 4 mg Q2H PRN Administration PAIN Oxycodone HCl 5 mg 05/07/18 12:21 05/09/18 12:05 Roxicodone PO 5 mg Q4HR PRN Administration PAIN Polyethylene Glycol 17 gm 05/09/18 09:00 05/09/18 08:40 Miralax PO 17 gm DAILY BEBETO Administration Senna 8.6 - 17.2 mg 05/09/18 09:00 05/09/18 08:41 Senokot PO 8.6 mg DAILY BEBETO Administration Sodium Chloride 10 ml 05/07/18 12:22 05/08/18 02:21 Normal Saline Flush 0.9% IVP 10 ml PRN PRN Administration PER PHYSICIAN ORDER - Physical Exam Wound/Incisions: positive: Other (no erythema, dry.) General Appearance: positive: No acute distress, Anxious Respiratory: positive: No respiratory distress, Other (crackles bilaterally) Cardiovascular: positive: Regular rate & rhythm Abdomen: positive: Other (Drain in place. Soft, non-distended, tender to palpation appropriate for post op state.) Extremities: positive: No pedal edema Neurologic/Psychiatric: positive: Oriented x3 Impression/Plan - Problem List Problem List: s/p lap xander with post op bleeding and laparoscopic evacuation of hematoma. - RONEL drainage has decreased significantly today. Will wait an additional 24 hours to ensure the bleeding has completely stopped. - We will continue to monitor H&H and transfuse as needed. She has not required blood transfusion as of yet. - Continue IV antibiotics for high risk of postoperative infection - SCD boots for DVT prophylaxis. No chemical DVT prophylaxis insetting of postoperative bleeding. - Encourage ambulation
[2018-05-09] MEDS: SODIUM CHLORIDE FLUSH 0.9% 10 ML SYRINGE IVP PRN ×2 (18:22→23:58)
[2018-05-10] MEDS: ACETAMINOPHEN 1,000 MG/100 ML 100 ML IV SCH ×2 (02:00→08:33)
[2018-05-10] MEDS: SODIUM CHLORIDE FLUSH 0.9% 10 ML SYRINGE IVP PRN (02:15)
[2018-05-10] MEDS: ALBUTEROL NEB 2.5 MG/3 ML INH PRN (02:25)
[2018-05-10] MEDS: oxyCODONE 5 MG TABLET PO PRN ×2 (05:08→08:40)
[2018-05-10] MEDS: AMPICILLIN/SULBACTAM 3 GM in SODIUM CHLORIDE 0.9% MINIBAG 100 ML IV SCH (05:22)
[2018-05-10 08:10] VITALS: BP 124/81
[2018-05-10] MEDS: POLYETHYLENE GLYCOL 3350 17 GM PACKET PO SCH (08:32)
[2018-05-10] MEDS: SENNA 8.6 MG TABLET PO SCH (08:33)
[2018-05-10] MEDS: DOCUSATE SODIUM 250 MG CAPSULE PO SCH (08:33)
--- NOTE | 2018-05-10 09:02 | DISCHARGE SUMMARY ---
"Discharge Summary Admit Date: 05/06/18 Discharge Date: 05/10/18 Discharging Provider: Sandip Code Status: Attempt Resuscitation Condition at Discharge: Good Discharge Disposition: 01 Home, Self Care - DIAGNOSES Admission Diagnoses: cholecystitis Discharge Diagnoses with Status of Each Condition: Cholecystitis - s/p cholecystectomy post operative bleeding - s/p evacuation of hematoma - HPI History of Present Illness: This is a 43 year old female who came in for an elective cholecystectomy for chronic complaints of biliary colic. S - CONSULTS | PROCEDURES Procedures: laparoscopic cholecystectomy, laparsoscopic evacuation of hematoma and hemostasis - HOSPITAL COURSE Hospital Course: he was noted to have a very inflammed gallbladder intra-operatively and bleeding was encountered. This was controlled, however, she developed post operative bleeding from her gallbladder fossa secondary to her fatty liver disease and possible underlying cirrhosis. he was taken back to the operative room for laparaoscopic evacuation of hematoma and hemostasis with chemical agents and cautery. Post operatively she continued to demonstrate signs of oozing from the liver bed and additional doses of TXA and FFP were administered and eventually the RONEL drainage diminished. She Has had a difficult time with pain control secondary to her history of drug abuse. She is tolerating a regular diet and ambulating on her own. Her espinal was removed on POD 1. She is stable for discharge today. - ALLERGIES Allergies/Adverse Reactions: Allergies Allergy/AdvReac Type Severity Reaction Status Date / Time No Known Drug Allergies Allergy Verified 04/23/18 04:16 - MEDICATIONS Home Medications: Ambulatory Orders Medication Instructions Recorded Confirmed Cyclobenzaprine [Flexeril] 10 mg PO TID PRN 05/06/18 05/06/18 Home Medications Other | Comments: Ciprofloxacin 500 mg PO Q 12 hrs x 4 days Oxycodone 5 mg 2 tabs PO Q 4 hours prn pain Tylenol 1000 mg PO Q 8 hrs prn pain Ibuprofen 600 mg PO Q 8 hrs PRN pain Miralax OTC prn constipation - PHYSICAL EXAM AT DISCHARGE General Appearance: positive: No acute distress Respiratory: positive: No respiratory distress Cardiovascular: positive: Regular rate & rhythm Abdomen: positive: Other (soft, non-distended. dressings CDI) Extremities: positive: No pedal edema Neurologic/Psychiatric: positive: Oriented x3 - LABS Result Diagrams: 05/09/18 05:46 - FOLLOW UP Follow Up: Dr. Oropeza's office Kris Mulhall 20 at 1030 am. - TIME SPENT Time Spent in Discharge (Minutes): 30"
--- NOTE | 2018-05-10 09:11 | Discharge Plan ---
Discharge Plan Disposition: Home, Self Care Condition: Good Prescriptions: oxyCODONE [Roxicodone] 5 mg PO Q4HR PRN #45 tablet PRN Reason: Pain Ciprofloxacin/Ciprofloxa HCl [Ciprofloxacin ER 500 mg Tablet] 500 mg PO BID 4 Days #8 tbmp.24hr Polyethylene Glycol 3350 [Miralax] 17 gm PO DAILY #30 packet Diet: Regular Activity Restrictions: No strenuous activity 4 weeks Shower Restrictions: No Driving Restrictions: Yes (not on narcotics) Weight Bearing: Full Weight Instruction Topics: Polyethylene Glycol powder, Ciprofloxacin tablets, Acetaminophen Oxycodone tablets, Gallbladder Surg Additional Instructions or Follow Up instructions: If you become weak or dizzy, develop fever, chills, worsening abdominal pain or redness or drainage around you incision, or if your RONEL drainage is more than 100cc in a day call Dr. Oropeza's office or go to ER. OK to removed dressings to shower and replace with new dressings. Measure and record drain output daily. No Smoking: If you smoke, Please STOP! Call for help. Follow-up with: Erica Paz ARNP [Primary Care Provider] -
== END 2018-05-10 10:58 | disposition home or self-care (01) ==
LOC: SDS 06:49 → OBS 12:37 → MS2 14:04 → SDS 05-07 09:52 → MS2 05-07 09:53 → UNDOADMIN 05-07 09:53 → MS2 05-07 11:25
PROVIDERS: ADMIT Surgery; ATTEND Surgery
PROC: 0W3G4ZZ Control Bleeding in Peritoneal Cavity, Percutaneous Endoscopic Approach (ICD-10-PCS; 2018-05-06)
PROC: 0FT44ZZ Resection of Gallbladder, Percutaneous Endoscopic Approach (ICD-10-PCS; principal; 2018-05-06 08:30)
DX: K80.10 Calculus of gallbladder with chronic cholecystitis without obstruction (principal); K91.840 Postprocedural hemorrhage of a digestive system organ or structure following a digestive system procedure; K76.0 Fatty (change of) liver, not elsewhere classified; Y84.8 Other medical procedures as the cause of abnormal reaction of the patient, or of later complication, without mention of misadventure at the time of the procedure; Y92.234 Operating room of hospital as the place of occurrence of the external cause; K82.8 Other specified diseases of gallbladder; J45.909 Unspecified asthma, uncomplicated; E66.9 Obesity, unspecified; Z68.42 Body mass index [BMI] 45.0-49.9, adult; F10.11 Alcohol abuse, in remission; F15.11 Other stimulant abuse, in remission; R79.1 Abnormal coagulation profile; Z79.51 Long term (current) use of inhaled steroids; Z79.899 Other long term (current) drug therapy; Z87.891 Personal history of nicotine dependence
CPT/HCPCS: 36415; 47379; 47562; 80076; 81025; 82040; 82247; 84075; 84155; 84460; 85025; 85610; 86850; 86900; 86901; 86920; 94640; A9270; G0378; J0131; J0330; J1170; J2270; J7120; P9017; 88304

== ENCOUNTER 2018-07-04 15:15 | Outpatient (CLI) | payer OTHER | END 2018-07-04 15:16 | disposition home or self-care (01) | LOC: SC 15:15 | PROVIDERS: ATTEND Internal Medicine Pulmonary Disease | DX: G47.30 Sleep apnea, unspecified (principal); R06.83 Snoring; G47.10 Hypersomnia, unspecified | CPT/HCPCS: 99203; 99212 ==

== ENCOUNTER 2018-07-28 20:22 | Outpatient (CLI) | payer OTHER | END 2018-07-28 20:23 | disposition home or self-care (01) | LOC: SC 20:22 | PROVIDERS: ATTEND Internal Medicine Pulmonary Disease | DX: G47.33 Obstructive sleep apnea (adult) (pediatric) (principal); G47.61 Periodic limb movement disorder | CPT/HCPCS: 95810 ==

== ENCOUNTER 2018-08-24 09:06 | Outpatient (CLI) | payer OTHER | END 2018-08-24 09:07 | disposition home or self-care (01) | LOC: SC 09:06 | PROVIDERS: ATTEND Nurse Practitioner Family | DX: G47.33 Obstructive sleep apnea (adult) (pediatric) (principal); G47.61 Periodic limb movement disorder | CPT/HCPCS: 99212; 99214 ==

== ENCOUNTER 2018-11-18 08:00 | Outpatient (CLI) | payer OTHER ==
[2018-11-18 12:52] LABS: BASOPHILS # (AUTO) 0.1 10^3/uL (0.0-0.1); BASOPHILS % (AUTO) 0.6 %; EOSINOPHILS # (AUTO) 0.8 10^3/uL (0.0-0.7); HGB - HEMOGLOBIN 13.5 g/dL (12.0-16.0); LYMPHOCYTES # (AUTO) 2.8 10^3/uL (1.5-3.5); LYMPHOCYTES % (AUTO) 23.2 %; MEAN CORPUSCULAR HEMOGLOBIN 27.7 pg (27.0-31.0); MEAN CORPUSCULAR HGB CONC 33.2 g/dL (32.0-36.0); MEAN CORPUSCULAR VOLUME 83.4 fL (81.0-99.0); MEAN PLATELET VOLUME 9.5 fL (7.9-10.8); MONOCYTES # (AUTO) 0.7 10^3/uL (0.0-1.0); MONOCYTES % (AUTO) 6.2 %; NEUTROPHILS # (AUTO) 7.5 10^3/uL (1.5-6.6); PLT - PLATELET COUNT 398 10^3/uL (130-450); RED BLOOD COUNT 4.88 10^6/uL (4.20-5.40); RED CELL DISTRIBUTION WIDTH 13.8 % (12.0-15.0); WHITE BLOOD COUNT 11.9 x10^3/uL (4.8-10.8)
== END 2018-11-18 23:59 | disposition home or self-care (01) ==
LOC: LAB.N 08:00
PROVIDERS: ATTEND Nurse Practitioner Gerontology
DX: D62 Acute posthemorrhagic anemia (principal)
CPT/HCPCS: 36415; 85025

== ENCOUNTER 2018-11-30 08:35 | Outpatient (CLI) | payer OTHER | END 2018-11-30 08:36 | disposition home or self-care (01) | LOC: SC 08:35 | PROVIDERS: ATTEND Nurse Practitioner Family | DX: G47.33 Obstructive sleep apnea (adult) (pediatric) (principal) | CPT/HCPCS: 99212; 99214 ==

== ENCOUNTER 2019-01-23 19:30 | Outpatient (CLI) | payer OTHER | END 2019-01-23 23:59 | disposition home or self-care (01) | LOC: SC 19:30 | PROVIDERS: ATTEND Internal Medicine Pulmonary Disease | DX: G47.33 Obstructive sleep apnea (adult) (pediatric) (principal) | CPT/HCPCS: 95806 ==

== ENCOUNTER 2019-04-20 12:49 | Outpatient (CLI) | payer OTHER | END 2019-04-20 12:50 | disposition home or self-care (01) | LOC: SC 12:49 | PROVIDERS: ATTEND Nurse Practitioner Family | DX: R06.83 Snoring (principal) | CPT/HCPCS: 99212; 99214 ==

== ENCOUNTER 2019-11-15 08:00 | Outpatient (CLI) | payer OTHER | END 2019-11-15 23:59 | disposition home or self-care (01) | LOC: LAB.R 08:00 | PROVIDERS: ATTEND Family Medicine | DX: N39.0 Urinary tract infection, site not specified (principal) | CPT/HCPCS: 87086; 87181 ==

== ENCOUNTER 2019-12-12 09:00 | Outpatient (CLI) | payer OTHER ==
[2019-12-12 19:39] LABS: BILIRUBIN,URINE NEGATIVE (NEGATIVE); GLUCOSE, URINE (UA) NEGATIVE (NEGATIVE); KETONES,URINE (UA) NEGATIVE (NEGATIVE); LEUKOCYTE ESTERASE, URINE SMALL (NEGATIVE); NITRITE,URINE POSITIVE (NEGATIVE); OCCULT BLOOD,URINE MODERATE (NEGATIVE); PROTEIN,URINE NEGATIVE (NEGATIVE); UROBILINOGEN,URINE 0.2 (NORMAL) E.U./dL (NORMAL)
[2019-12-12 19:58] LABS: CLARITY,URINE HAZY (CLEAR)
[2019-12-12 19:59] LABS: BACTERIA,URINE Few /HPF (None Seen); SQUAMOUS EPITHELIAL CELL,UR FEW Squamous (<= Few)
== END 2019-12-12 23:59 | disposition home or self-care (01) ==
LOC: LAB.R 09:00
PROVIDERS: ATTEND Family Medicine
DX: R30.0 Dysuria (principal)
CPT/HCPCS: 81001; 81003; 87086

== ENCOUNTER 2020-08-27 08:00 | Outpatient (CLI) | payer OTHER | END 2020-08-27 23:59 | disposition home or self-care (01) | LOC: LAB.R 08:00 | PROVIDERS: ATTEND Family Medicine | DX: R30.0 Dysuria (principal) | CPT/HCPCS: 87086; 87181 ==

== ENCOUNTER 2021-01-14 08:23 | Outpatient (CLI) | payer OTHER ==
--- NOTE | 2021-01-15 13:42 | Mammography Report ---
BILATERAL DIGITAL SCREENING MAMMOGRAM 3D/2D: 01/14/2021 CLINICAL: Routine screening. Comparison is made to exam dated: 04/10/2015 mammogram - [facility]. The tissue of both breasts is heterogeneously dense. This may lower the sensitivity of mammography. No significant masses, calcifications, or other findings are seen in either breast. There has been no significant interval change. IMPRESSION: NEGATIVE There is no mammographic evidence of malignancy. A 1 year screening mammogram is recommended. This exam was interpreted at Station ID: [id number]. NOTE: For mammograms, a report in lay terms will be sent to the patient. Approximately 15% of breast malignancies will not be visualized mammographically. In the management of a palpable breast mass, a negative mammogram must not discourage biopsy of a clinically suspicious lesion. Electronically Signed By: Antonio Tobar M.D. [email or web address]:01/14/2021 09:10:26 ACR BI-RADS Category 1: Negative 3341F PARENCHYMAL PATTERN: (D) - The breast(s) demonstrate(s) heterogeneously dense fibroglandular azucena starkey. BI-RADS CATEGORY: (1) - 1 RECOMMENDATION: (ANNUAL) - Recommend routine annual screening mammography. [id number] 1 year screening LATERALITY: (B)
== END 2021-01-14 08:24 | disposition home or self-care (01) ==
LOC: DI 08:23
PROVIDERS: ATTEND Physician Assistant
DX: Z12.31 Encounter for screening mammogram for malignant neoplasm of breast (principal)

== ENCOUNTER 2021-08-04 14:35 | Outpatient (CLI) | payer OTHER ==
--- NOTE | 2021-08-04 16:25 | XRAY Report ---
PROCEDURE: Shoulder 3 View LT INDICATIONS: SHOULDER PAIN,LEFT., LOW BACK PAIN TECHNIQUE: 3 views of the shoulder were acquired. COMPARISON: None. FINDINGS: Bones: No fractures or dislocations. No suspicious bony lesions. Visualized ribs appear intact. T here is severe acromioclavicular narrowing. Soft tissues: No suspicious soft tissue calcifications. IMPRESSION: Acromioclavicular degenerative narrowing. Reviewed by: Sherrill Dickerson MD on 08/04/2021 4:23 PM [facility] Approved by: Sherrill Dickerson MD on 08/04/2021 4:23 PM [facility] Station ID: [id number]
--- NOTE | 2021-08-04 16:26 | XRAY Report ---
PROCEDURE: Lumbar Spine 2 View INDICATIONS: LOW BACK PAIN TECHNIQUE: 3 views of the lumbar spine were acquired. COMPARISON: None FINDINGS: Bones: 5 [id number]-ptrpteh vertebrae are present. There is moderate to severe disc and foraminal narr owing noted L5-S1. No vertebral body compression fractures. No suspicious bony lesions. Soft tissues: Overlying bowel gas pattern is normal. No suspicious soft tissue calcifications. IMPRESSION: Degenerative changes most notable at L5-S1. Reviewed by: Sherrill Dickerson MD on 08/04/2021 4:25 PM PST Approved by: Sherrill Dickerson MD on 08/04/2021 4:25 PM [facility] Station ID: [id number]
== END 2021-08-04 14:36 | disposition home or self-care (01) ==
LOC: DI 14:35
PROVIDERS: ATTEND Physician Assistant
DX: M19.012 Primary osteoarthritis, left shoulder (principal); M47.817 Spondylosis without myelopathy or radiculopathy, lumbosacral region

== ENCOUNTER 2021-09-25 15:48 | Emergency (ER) | payer OTHER ==
[2021-09-25 15:59] VITALS: BP 142/94
[2021-09-25] MEDS ORDERED: HYDROcod/ACETAM 5/325 MG TABLET PO STA (16:23)
--- NOTE | 2021-09-25 16:25 | ED Physician Documentation ---
History of Present Illness - Stated complaint Stated Complaint: BACK PX - Chief complaint Chief Complaint: Wound - History obtained from History obtained from: Patient - History of Present Illness Timing: How many weeks ago (1) Pain level max: 8 Pain level now: 8 - Additonal information Additional information: 46-year-old female presents to the emergency department with 1 week of redness and swelling to the posterior right shoulder. She states that she was diagnosed with an abscess, started on Bactrim 2 days ago. She states that the clinic told her to apply warm compresses until it "burst". 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 HEENT: Tonsil/Adenoidectomy - Present Medications Home Medications: Ambulatory Orders Medication Instructions Recorded Confirmed Cyclobenzaprine [Flexeril] 10 mg PO TID PRN 05/06/18 05/06/18 Albuterol 2.5 mg INH RTQ4H PRN neb 05/10/18 Ciprofloxacin/Ciprofloxa HCl 500 mg PO BID 4 Days #8 tbmp.24hr 05/10/18 [Ciprofloxacin ER 500 mg Tablet] oxyCODONE [Roxicodone] 5 mg PO Q4HR PRN #45 tablet 05/10/18 polyethylene glycoL 3350 [Miralax] 17 gm PO DAILY #30 packet 05/10/18 HYDROcod/ACETAM 5/325 [[place] 5/325] 1 - 2 ea PO Q6H PRN #14 tablet 09/25/21 cephALEXin [Keflex] 500 mg PO Q6H #28 cap 09/25/21 - Allergies Allergies/Adverse Reactions: Allergies Allergy/AdvReac Type Severity Reaction Status Date / Time No Known Drug Allergies Allergy Verified 09/25/21 15:59 - Social History Does the pt smoke?: Yes Smoking Status: Current every day smoker Does the pt drink ETOH?: No Does the pt have substance abuse?: No - Immunizations Immunizations are current?: Yes Immunizations: TDAP >10years/unknown - POLST Patient has POLST: No PD ED PE NORMAL - Vitals Vital signs reviewed: Yes - General General: Alert and oriented X 3, No acute distress - HEENT HEENT: Moist mucous membranes - Neck Neck: Supple, no meningeal sign - Cardiac Cardiac: RRR - Respiratory Respiratory: No respiratory distress, Clear bilaterally - Derm Derm: Warm and dry - Extremities Extremities: Other (4 x 5 cm abscess to the right posterior shoulder. Fluctuant. Surrounding cellulitis) - Neuro Neuro: Alert and oriented X 3 - Psych Psych: Normal mood, Normal affect Results - Vitals Vitals: Vital Signs - 24 hr 09/25/21 15:55 Temperature 36.9 C Heart Rate 94 Respiratory 18 Rate Blood Pressure 142/94 H O2 Saturation 99 Oxygen O2 Source Room air Procedures - Abscess I&D (location) R posterior shoulder Preparation: Chlorhexadine, Lidocaine 2%, With epi Incision: Incised with scalpel, Purulent drainage, Loculations broken, Packed, Culture obtained Other: Pt tolerated well, Dressing applied, Antibiotic prescribed PD MEDICAL DECISION MAKING - ED course Complexity details: considered differential, d/w patient ED course: 46-year-old female with a abscess on her back. This was incised and drained. Tolerated well. Wound culture obtained. We will have her continue her Bactrim at home. We will add Keflex. I am prescribing a short course of short-acting opioid pain medication for this patient. 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 I have discussed that the opioids are for short term therapy only, and will not be refilled from the ED. patient counseled regarding signs and symptoms for which I believe and urgent re-evaluation would be necessary. Patient with good understanding of and agreement to plan and is comfortable going home at this time This document was made in part using voice recognition software. While efforts are made to proofread this document, sound alike and grammatical errors may occur. Departure - Departure Disposition: 01 Home, Self Care Clinical Impression: Abscess Condition: Good Instructions: ED Abscess IandD Follow-Up: Provider,Other [Primary Care Provider] - Within 3 Days Prescriptions: cephALEXin [Keflex] 500 mg PO Q6H #28 cap HYDROcod/ACETAM 5/325 [[place] 5/325] 1 - 2 ea PO Q6H PRN #14 tablet PRN Reason: Pain Comments: Your prescriptions were sent to [facility] in [place]. Please follow-up with your doctor for further care. You need a wound recheck in 2 to 3 days, if this cannot be done with your doctor, please return here. Continue the Bactrim you are currently taking as well. I am prescribing a short course of narcotic pain medication for you. These are potentially dangerous and addictive medications that should be used carefully. These medications may constipate you. Take an qecp-dzn-vjqrifp stool softener (docusate) twice daily with plenty of water while taking these medications. If you go 24 hours without a bowel movement, take [id number]-vxr-yynyiis miralax, per package instructions. Do not drink or drive while taking these medications. If you received narcotic or sedating medications while in the emergency departm ent, do not drive for 24 hours. Store this medication in a safe, secure place and out of reach of children. It is a violation of federal law to give or sell this medication to another person or to use in a manner other than prescribed. The ED will not refill narcotic prescriptions, including prescriptions lost or stolen. To dispose of unwanted medications: 1. [facility] [address] in [place] has a medication drop box. They accept prescription medications (in pill form) Wednesday through Wednesday 9:00 a.m. to 5:00 p.m. 2. The [facility] accepts prescription medications (in pill form only) for disposal year round. Call for more information. 3. Contact the [facility] for the next [facility] sponsored prescription drug collection event. , [phone], or [phone]; Discharge Date/Time: 09/25/21 16:34
== END 2021-09-25 16:34 | disposition home or self-care (01) ==
LOC: ED 15:48
DX: L02.413 Cutaneous abscess of right upper limb (principal); F17.200 Nicotine dependence, unspecified, uncomplicated
CPT/HCPCS: 10060; 87070; 87181; 87205; 99282; 99283; A9270

== ENCOUNTER 2023-05-21 15:56 | Outpatient (CLI) | payer OTHER ==
--- NOTE | 2023-05-22 00:13 | Ultrasound Report ---
PROCEDURE: Pelvic w/Transvaginal INDICATIONS: IRREGULAR UTERINE BLEEDING TECHNIQUE: Real-time scanning was performed of the pelvic organs, with image documentation. Additional endovagi nal scanning was necessary due to incomplete visualization of the adnexal and endometrial structures by transabdominal scanning. COMPARISON: None. FINDINGS: Uterus: Uterus is anteverted, retroflexed, and diffusely enlarged in size at 13.7 x 10.6 x 1.0 cm. The myometrium is diffusely heterogeneous. The endometrial canal is obscured secondary to a heterogen eous, cystic and solid uterine mass measuring about 8.3 x 6.0 x 5.5 cm. There is occasional internal vascular flow.. Ovaries: The ovaries were not seen. Other: No pathologic free abdominal or pelvic fluid. IMPRESSION: 1. Enlarged uterus due to central heterogeneous solid vascular mass suspicious for neoplasm. Further evaluation with MR imaging of the pelvis with contrast is recommended. 2. Bilateral ovaries were not seen. Reviewed by: Charissa Torres MD on 05/22/2023 12:12 AM PDT Approved by: Charissa Torres MD on 05/22/2023 12:12 AM PDT Station ID: [id number]
== END 2023-05-21 15:57 | disposition home or self-care (01) ==
LOC: DI 15:56
PROVIDERS: ATTEND Physician Assistant
DX: N92.6 Irregular menstruation, unspecified (principal); N85.8 Other specified noninflammatory disorders of uterus

== ENCOUNTER 2023-10-24 22:53 | Emergency (ER) | payer OTHER ==
[2023-10-24 23:08] VITALS: BP 150/100; O2SAT 97
[2023-10-24] MEDS ORDERED: KETOROLAC 30 MG/ML VIAL IM STA (23:11)
--- NOTE | 2023-10-24 23:13 | ED Physician Documentation ---
History of Present Illness - Stated complaint Stated Complaint: LT ARM PX - Chief complaint Chief Complaint: Ext Problem - History obtained from History obtained from: Patient - Additonal information Additional information: 48-year-old female presents for left shoulder pain since waking up at 6 PM. Patient states she fell asleep while watching a football game and ended up taking a nap on her left shoulder. When she woke up she had pain in the front of her left shoulder and difficulty moving her arm due to the pain. Worse with palpation and movement.Tried to rub her shoulder but it did not improve pain and so she came for evaluation. She states she thinks She may have a pinched nerve. Review of Systems Constitutional: denies: Fever, Chills Cardiac: denies: Chest pain / pressure, Palpitations Respiratory: denies: Dyspnea, Cough GI: denies: Abdominal Pain, Nausea, Vomiting : denies: Dysuria, Frequency, Hesitancy Musculoskeletal: reports: Joint pain. 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 HEENT: Tonsil/Adenoidectomy - Present Medications Home Medications: Ambulatory Orders Medication Instructions Recorded Confirmed Cyclobenzaprine [Flexeril] 10 mg PO TID PRN 05/06/18 05/06/18 Albuterol 2.5 mg INH RTQ4H PRN neb 05/10/18 Ciprofloxacin/Ciprofloxa HCl 500 mg PO BID 4 Days #8 tbmp.24hr 05/10/18 [Ciprofloxacin ER 500 mg Tablet] oxyCODONE [Roxicodone] 5 mg PO Q4HR PRN #45 tablet 05/10/18 polyethylene glycoL 3350 [Miralax] 17 gm PO DAILY #30 packet 05/10/18 HYDROcod/ACETAM 5/325 [[place] 5/325] 1 - 2 ea PO Q6H PRN #14 tablet 09/25/21 cephALEXin [Keflex] 500 mg PO Q6H #28 cap 09/25/21 methocarbamoL [Methocarbamol] 500 mg PO TID PRN #30 tablet 10/24/23 - Allergies Allergies/Adverse Reactions: Allergies Allergy/AdvReac Type Severity Reaction Status Date / Time No Known Drug Allergies Allergy Verified 10/24/23 22:57 - Social History Does the pt smoke?: Yes Smoking Status: Current every day smoker Does the pt drink ETOH?: No Does the pt have substance abuse?: No - Immunizations Immunizations are current?: Yes Immunizations: TDAP >10years/unknown - POLST Patient has POLST: No PD ED PE NORMAL - Vitals Vital signs reviewed: Yes - General General: Alert and oriented X 3, No acute distress, Well developed/nourished - Neck Neck: Supple, no meningeal sign, No bony TTP - Cardiac Cardiac: RRR, Strong equal pulses - Respiratory Respiratory: No respiratory distress - Extremities Extremities: No deformity, No edema, Other (Pain along biceps tendon L arm. Decreased ROM due to pain. Radial pulses intact) - Neuro Neuro: Alert and oriented X 3, manager loss prevention 2-12 intact, No motor deficit, Normal speech - Psych Psych: Normal mood, Normal affect Results - Vitals Vitals: Vital Signs - 24 hr 10/24/23 22:57 Temperature 36.8 C Heart Rate 75 Respiratory 16 Rate Blood Pressure 150/100 H O2 Saturation 97 Oxygen O2 Source Room air PD Medical Decision Making - ED course Complexity details: re-evaluated patient, considered differential, d/w patient ED course: Musculoskeletal shoulder pain after falling asleep on her arm while watching a football game. Pain is reproducible along the biceps tendon on the left-hand side, very musculoskeletal in nature. Negative Spurling sign, negative head impulse test. Patient placed in sling for comfort, given shot of Toradol for pain. Advise gentle stretching, Tylenol Motrin as needed. Advised ortho follow up if no improvement. Departure - Departure Disposition: 01 Home, Self Care Clinical Impression: Biceps strain Condition: Stable Instructions: ED Shoulder Pain [facility] Follow-Up: Boris Osullivan MD [Provider Admit Priv/Credential] - Prescriptions: methocarbamoL [Methocarbamol] 500 mg PO TID PRN #30 tablet PRN Reason: muscle spasm Comments: Alternate Tylenol and Motrin every 3-4 hours as needed for pain. Apply ice. Use gentle stretching exercises and massage for the joint itself. Please follow-up with your primary care doctor and orthopedic surgery. [facility] Forms: PCP List Discharge Date/Time: 10/24/23 23:52
== END 2023-10-24 23:52 | disposition home or self-care (01) ==
LOC: ED 22:53
DX: S46.211A Strain of muscle, fascia and tendon of other parts of biceps, right arm, initial encounter (principal); X58.XXXA Exposure to other specified factors, initial encounter; F17.200 Nicotine dependence, unspecified, uncomplicated
CPT/HCPCS: 96372; 99283

== ENCOUNTER 2024-03-14 11:19 | Day surgery (SDC) | payer OTHER ==
[2024-03-14] MEDS: LACTATED RINGERS 1,000 ML IV ONE ×2 (13:09→14:11)
[2024-03-14] MEDS ORDERED: PROPOFOL 500 MG/50 ML 500 MG/50 ML VIAL ONE (13:24)
[2024-03-14] MEDS ORDERED: MIDAZOLAM 2 MG/2 ML VIAL ONE (13:47)
[2024-03-14] MEDS ORDERED: KETAMINE 200 MG/20 ML VIAL ONE (13:48)
[2024-03-14] MEDS: SIMETHICONE *(INFANT SUSP)* 40 MG/0.6 ML BOTTLE PO ONE (14:02)
--- NOTE | 2024-03-14 14:14 | ANESTHESIA ---
Pre-Anesthesia VS, & Labs - Diagnosis screening - Procedure colonoscopy Vital Signs: Temp Pulse Resp BP Pulse Ox O2 Flow Rate 36.5 C 79 12 115/67 93 03/14/24 13:10 03/14/24 13:10 03/14/24 13:10 03/14/24 13:10 03/14/24 13:10 Height: 5 ft 1 in Weight (kg): 116.3 kg Body Mass Index: 48.4 BMI Classification: Morbidly Obese - NPO >8 hours - Is Patient ?: No - Lab Results Current Lab Results: Laboratory Tests 03/14/24 11:54: POC Whole Bld Glucose 132 H Home Medications and Allergies Home Medications: Ambulatory Orders Rosuvastatin Calcium 03/13/24 Semaglutide [Ozempic] mg SQ 03/13/24 Cyclobenzaprine [Flexeril] 10 mg PO TID PRN 05/06/18 Rosuvastatin Calcium 03/13/24 Semaglutide [Ozempic] mg SQ 03/13/24 Allergies/Adverse Reactions: Allergies Allergy/AdvReac Type Severity Reaction Status Date / Time No Known Drug Allergies Allergy Verified 10/24/23 22:57 Anes History & Medical History - Anesthetic History Anesthesia Complications: reports: No previous complications Family history of Anesthesia Complications: Denies Family history of Malignant Hyperthermia: Denies - Medical History Cardiovascular: reports: High cholesterol Pulmonary: reports: Asthma Gastrointestinal: reports: None Urinary: reports: None Neuro: reports: None Musculoskeletal: reports: Other Endocrine/Autoimmune: reports: Type 2 diabetes Skin: reports: None Smoking Status: Current every day smoker History of Cancer?: No - Surgical History General: reports: Cholecystectomy, Other Eyes Ears Nose Throat (EENT): reports: Tonsil/Adenoidectomy Gynecologic: reports: section, Hysterectomy Exam General: Alert, Oriented x3, Cooperative Dental: WNL Mouth Openin Fingerbreadth Neck Mobility: Normal Thyromental Distance: less than 4 cm Respiratory: Lungs clear Cardiovascular: Regular rate Plan Anesthesia Type: Total IV Consent for Procedure(s) Verified and Reviewed: Yes Code Status: Attempt Resuscitation ASA classification: 3-Severe systemic disease Is this case an emergency?: No
--- NOTE | 2024-03-14 14:21 | ANESTHESIA POST OP EVALUATION ---
Anesthesia Post Eval - Post Anesthesia Eval Vitals: Last Vital Signs Temp 36.1 C L 03/14/24 14:11 Pulse 85 03/14/24 14:15 Resp 16 03/14/24 14:15 BP 123/69 03/14/24 14:15 Pulse Ox 95 03/14/24 14:15 O2 Flow Rate CV Function Including HR & BP: Stable Pain Control: Satisfactory Nausea & Vomiting: Negative Mental Status: Baseline Respiratory Status: Airway Patent Hydration Status: Satisfactory Anesthesia Complications: None
[2024-03-14 14:51] VITALS: BP 117/70; O2SAT 96
== END 2024-03-14 11:20 | disposition home or self-care (01) ==
LOC: SDS 11:19
PROVIDERS: ATTEND Surgery
PROC: 0DJD8ZZ Inspection of Lower Intestinal Tract, Via Natural or Artificial Opening Endoscopic (ICD-10-PCS; principal; 2024-03-14 13:45)
DX: Z12.11 Encounter for screening for malignant neoplasm of colon (principal); E66.01 Morbid (severe) obesity due to excess calories; Z68.42 Body mass index [BMI] 45.0-49.9, adult; E11.9 Type 2 diabetes mellitus without complications; Z79.85 Long-term (current) use of injectable non-insulin antidiabetic drugs; J45.909 Unspecified asthma, uncomplicated; F17.200 Nicotine dependence, unspecified, uncomplicated
CPT/HCPCS: 45378; A9270; J3490; J7120

== ENCOUNTER 2024-06-13 11:14 | Outpatient (CLI) | payer OTHER ==
--- NOTE | 2024-06-14 15:32 | Mammography Report ---
BILATERAL DIGITAL SCREENING MAMMOGRAM 3D/2D: 06/13/2024 CLINICAL: Routine screening. Comparison is made to exams dated: 01/14/2021 mammogram and 04/10/2015 mammogram - [facility]. There are scattered areas of fibroglandular density (category b / 25%-50% glandular tissue). No significant masses, calcifications, or other findings are seen in either breast. There has been no significant interval change. IMPRESSION: NEGATIVE There is no mammographic evidence of malignancy. A 1 year screening mammogram is recommended. Based on the Tyrer Cuzick model (a risk assessment model) the patient's lifetime risk is 6.3% and her 10 year risk is 1.5%. According to the ACR, ACS, and NCCN guidelines, an annual breast MRI exam tito g with mammogram is recommended if the patient's lifetime risk is 20% or greater. This exam was interpreted at Station ID: [id number]. NOTE: For mammograms, a report in lay terms will be sent to the patient. Approximately 15% of breast malignancies will not be visualized mammographically. In the management of a palpable breast mass, a negative mammogram must not discourage biopsy of a clinically suspicious lesion. Electronically Signed By: Antonio long/imer:06/13/2024 13:42:13 letter sent: No_Letter ACR BI-RADS Category 1: Negative 3341F PARENCHYMAL PATTERN: (A) - The breast(s) demonstrate(s) scattered fibroglandular densities. BI-RADS CATEGORY: (1) - 1 RECOMMENDATION: (ANNUAL) - Recommend routine annual screening mammography. [id number] 1 year screening LATERALITY: (B)
== END 2024-06-13 11:15 | disposition home or self-care (01) ==
LOC: DI 11:14
PROVIDERS: ATTEND Internal Medicine
DX: Z12.31 Encounter for screening mammogram for malignant neoplasm of breast (principal)